=== PATIENT | female | born 1990 | race Caucasian/White ===

== ENCOUNTER 2016-11-23 12:56 | Emergency (ER) | payer OTHER | END 2016-11-23 15:29 | disposition home or self-care (01) | LOC: ER1 12:56 | DX: M79.641 Pain in right hand (principal); F17.210 Nicotine dependence, cigarettes, uncomplicated | CPT/HCPCS: 73130; 99283 ==

== ENCOUNTER 2016-11-26 22:39 | Emergency (ER) | payer OTHER ==
[2016-11-27 02:37] LABS: HEMOGLOBIN 14.5 gm/dl (12.3-15.3); RED BLOOD COUNT 4.61 M/UL (4.00-5.10); WHITE BLOOD COUNT 8.7 K/UL (4.5-11.0)
[2016-11-27 04:11] LABS: BUN/CREATININE RATIO 10 (0-10)
== END 2016-11-27 05:25 | disposition home or self-care (01) ==
LOC: ER1 22:39
PROVIDERS: Physician Assistant Medical
DX: R10.9 Unspecified abdominal pain (principal); F17.210 Nicotine dependence, cigarettes, uncomplicated
CPT/HCPCS: 36415; 80053; 81001; 84703; 85025; 87086; 96374; 96375; 99284; J1885; J2405

== ENCOUNTER → 2016-12-18 | Outpatient (CLI) | payer OTHER | LOC: KOH-I 15:23 | DX: M67.441 Ganglion, right hand (principal) | CPT/HCPCS: 73218 ==

== ENCOUNTER 2016-12-30 20:36 | Emergency (ER) | payer OTHER | END 2016-12-30 22:18 | disposition home or self-care (01) | LOC: ER1 20:36 | DX: S60.222A Contusion of left hand, initial encounter (principal); W01.198A Fall on same level from slipping, tripping and stumbling with subsequent striking against other object, initial encounter; Y92.009 Unspecified place in unspecified non-institutional (private) residence as the place of occurrence of the external cause | CPT/HCPCS: 73130; 99283 ==

== ENCOUNTER 2022-01-06 06:29 | Inpatient (IN) | payer OTHER ==
[~2022-01-06] VITALS: Ht 162.6 cm; Wt 91.6 kg
[2022-01-06 07:00] LABS: HEMOGLOBIN 11.8 gm/dl (12.3-15.3); RED BLOOD COUNT 3.9 M/UL (4.00-5.10); WHITE BLOOD COUNT 9.4 K/UL (4.5-11.0)
[2022-01-06] MEDS ORDERED: LABETALOL HCL200 MG PO (07:23)
[2022-01-06 08:21] LABS: BUN/CREATININE RATIO 10 (0-10)
[2022-01-06] MEDS ORDERED: HYDROCODON-ACE1 EAC6 PO (08:49)
[2022-01-06] MEDS ORDERED: COLACE 100MG C100 MG PO (08:49)
[2022-01-06] MEDS ORDERED: IBUPROFEN600 MG PO (08:49)
[2022-01-07 05:05] LABS: HEMOGLOBIN 11.7 gm/dl (12.3-15.3)
== END 2022-01-08 12:35 | disposition home or self-care (01) | DRG 788 ==
LOC: OB 06:29
PROVIDERS: ADMIT Obstetrics & Gynecology
PROC: 4A1HXCZ Monitoring of Products of Conception, Cardiac Rate, External Approach (ICD-10-PCS; 2022-01-06)
PROC: 3E0234Z Introduction of Serum, Toxoid and Vaccine into Muscle, Percutaneous Approach (ICD-10-PCS; 2022-01-06)
PROC: 10D00Z1 Extraction of Products of Conception, Low, Open Approach (ICD-10-PCS; principal; 2022-01-08)
DX: O10.92 Unspecified pre-existing hypertension complicating childbirth (principal); Z3A.37 37 weeks gestation of pregnancy; Z37.0 Single live birth; Z20.822 Contact with and (suspected) exposure to COVID-19; O99.334 Smoking (tobacco) complicating childbirth; F17.210 Nicotine dependence, cigarettes, uncomplicated; O99.824 Streptococcus B carrier state complicating childbirth; Z82.49 Family history of ischemic heart disease and other diseases of the circulatory system; Z82.3 Family history of stroke; Z83.3 Family history of diabetes mellitus; Z82.1 Family history of blindness and visual loss; Z90.49 Acquired absence of other specified parts of digestive tract; Z23 Encounter for immunization
CPT/HCPCS: 36415; 80053; 81001; 82800; 85014; 85018; 85025; 90471; 90715; C9113; J0690; J1200; J1885; J2274; J2300; J2370; J2405; J2590; J3010